=== PATIENT | male | born 1990 | race Caucasian/White ===

== ENCOUNTER 2018-08-10 17:16 | Emergency (ER) | payer SELFPAY ==
[2018-08-10 17:23] VITALS: O2SAT 98
[2018-08-10] MEDS ORDERED: White Petrolatum/Mineral Oil Ophth Oint(3.5 gm) OD STA (17:41)
--- NOTE | 2018-08-10 17:41 | C.PDOC ---
History Of Present Illness 28 Year old male presents to ED with complaint of new onset right -sided facial droop upon awakening this morning. Patient states he has been experiencing limited closure of the right eyelid. Patient denies other focal deficits, rash, weakness, or numbness of the upper and lower extremities. NEW ONSET R FACIAL DROOP UPON AWAKENING THIS MORNING. PS LIMITED CLOSURE R EYELID. 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 FULL CLOSURE R PERIORBITAL. NO DROOLING SKIN NO LESIONS REMAINDER NEG Time Seen by Provider: 08/10/18 17:27 Chief Complaint (Nursing): Weakness/Neurological Deficit History Per: Patient History/Exam Limitations: no limitations Onset/Duration Of Symptoms: Hrs (12) Current Symptoms Are (Timing): Still Present Past Medical History Reviewed: Historical Data, Nursing Documentation, Vital Signs Vital Signs: Last Vital Signs Temp 97.9 F 08/10/18 17:19 Pulse 87 08/10/18 17:19 Resp 16 08/10/18 17:19 BP 152/104 H 08/10/18 17:19 Pulse Ox 98 08/10/18 17:19 Primary Care Provider: FAMILY PROVIDER,NO - Medical History PMH: Asthma, HTN Surgical History: No Surg Hx Family History: States: Unknown Family Hx - Social History Hx Alcohol Use: Yes Hx Substance Use: No - Immunization History Hx Tetanus Toxoid Vaccination: No Hx Influenza Vaccination: No Hx Pneumococcal Vaccination: No Review Of Systems Except As Marked, All Systems Reviewed And Found Negative. Neurological: Positive for: Other (right sided facial droop) Physical Exam - Physical Exam Appears: Well, Non-toxic, No Acute Distress Skin: Normal Color, Warm, Dry, No Other (lesions) Head: Atraumatic, Normacephalic Eye(s): bilateral: Normal Inspection, PERRL, EOMI Ear(s): Bilateral: Normal Oral Mucosa: Moist Throat: No Drooling Neck: Normal ROM, Supple Chest: Symmetrical, No Deformity Cardiovascular: Rhythm Regular, No Murmur Respiratory: No Accessory Muscle Use, No Rales, No Wheezing, Other (NARD) Gastrointestinal/Abdominal: Soft, No Tenderness Extremity: Capillary Refill (<2 seconds) Extremity: Bilateral: Atraumatic, Normal Color And Temperature, Normal ROM Pulses: Left Radial: Normal, Right Radial: Normal Neurological/Psych: Oriented x3, Normal Speech, Normal Cognition, Other (partial paresis of the right side of the face consistent with CN VII palsy; full closure of the right periorbital) Gait: Steady ED Course And Treatment O2 Sat by Pulse Oximetry: 98 Pulse Ox Interpretation: Normal - CT Scan/US HEAD Other Rad Studies (CT/US): Radiology Report Reviewed ([place] [facility]) Progress Note: Head CT ordered for pateint. Patient given Lacri-Lube, Valtrex, and prednisone. Disposition Counseled Patient/Family Regarding: Studies Performed, Diagnosis, Need For Followup, Rx Given - Disposition Referrals: [facility] [Outside] [facility] [Outside] Disposition: HOME/ ROUTINE Disposition Time: 19:15 Condition: GOOD Prescriptions: predniSONE [Prednisone] 60 mg PO DAILY #12 tab Valacyclovir HCl [Valtrex] 1,000 mg PO BID #10 tablet Instructions: Garcia's Palsy (DC) Forms: [employer] (Greek) - Clinical Impression Clinical Impression: Garcia palsy - Scribe Statement The provider has reviewed the documentation as recorded by the Scribe (Kim Hallman) All medical record entries made by the Scribe were at my direction and personally dictated by me. I have reviewed the chart and agree that the record accurately reflects my personal performance of the history, physical exam, medical decision making, and the department course for this patient. I have also personally directed, reviewed, and agree with the discharge instructions and disposition.
[2018-08-10 19:52] VITALS: BP 129/84; PULSE 84; RESP 20; TEMP 98.2
--- NOTE | 2018-08-11 09:35 | CT ---
Date of service: 08/10/2018 PROCEDURE: CT HEAD WITHOUT CONTRAST. HISTORY: R FACIAL DROOP COMPARISON: None available. TECHNIQUE: Axial computed tomography images were obtained through the head/brain without intravenous contrast. Radiation dose: Total exam DLP = 1091.85 mGy-cm. This CT exam was performed using one or more of the following dose reduction techniques: Automated exposure control, adjustment of the mA and/or kV according to patient size, and/or use of iterative reconstruction technique. FINDINGS: HEMORRHAGE: No intracranial hemorrhage. BRAIN: No mass effect or edema. No atrophy or chronic microvascular ischemic changes. VENTRICLES: Unremarkable. No hydrocephalus. CALVARIUM: Unremarkable. PARANASAL SINUSES: Unremarkable as visualized. No significant inflammatory changes. MASTOID AIR CELLS: Unremarkable as visualized. No inflammatory changes. OTHER FINDINGS: None. IMPRESSION: No evidence of acute intracranial hemorrhage mass effect or midline shift.
== END 2018-08-10 19:44 | disposition home or self-care (01) ==
LOC: C.ER 17:16
DX: G51.0 Bell's palsy (principal)